=== PATIENT | female | born 1990 | race African-American/Black ===

== ENCOUNTER 2020-05-09 10:15 | Inpatient (IN) | payer MEDICAID, OTHER ==
[~2020-05-09] VITALS: Ht 167.6 cm; Wt 100.0 kg
[~2020-05-09 10:15] MED LIST: HYDR-3240 PO; IBUP-1222 PO
[2020-05-14] MEDS ORDERED: NEWBORN KIT ONE (22:23)
[2020-05-14 22:25] VITALS: BP 130/71
[2020-05-14] MEDS ORDERED: OXYTOCIN 30U/ 0.9% NaCL 500ML 500 ML IV PRN (22:30)
[2020-05-14] MEDS ORDERED: FENTANYL PF 100 MCG/2ML IV PRN (22:30)
[2020-05-14] MEDS ORDERED: D5%-LACTATED RINGERS 1,000 ML IV SCH (22:30)
[2020-05-14] MEDS ORDERED: ONDANSETRON 2MG/ML, 2ML IVPush PRN (22:30)
[2020-05-14] MEDS ORDERED: TERBUTALINE 1 MG/ML, 1ML IVPush PRN (22:30)
[2020-05-14] MEDS ORDERED: OXYTOCIN 30U/ 0.9% NaCL 500ML 500 ML IV ONE (22:30)
[2020-05-14] MEDS ORDERED: FENTANYL PF 100 MCG/2ML IVPush PRN (22:30)
[2020-05-14] MEDS ORDERED: CALCIUM CARBONATE 500 MG TAB.CHEW PO PRN (22:30)
[2020-05-14] MEDS ORDERED: TERBUTALINE 1 MG/ML, 1ML SQ PRN (22:30)
[2020-05-14] MEDS: LACTATED RINGERS 1,000 ML IV SCH (22:40)
[2020-05-14] MEDS ORDERED: OXYTOCIN 30U/ 0.9% NaCL 500ML 500 ML ONE (22:44)
[2020-05-14 22:59] LABS: BASOPHILS % (AUTO) 1 % (0-1); EOSINOPHILS % (AUTO) 2 % (1-7); LYMPHOCYTES % (AUTO) 30 % (22-44); MEAN CORPUSCULAR HEMOGLOBIN 29.1 pg (27.0-34.8); MONOCYTES % (AUTO) 10 % (2-9); NEUTROPHILS % (AUTO) 58 % (42-75); PLATELET COUNT 317 x10^3/uL (130-400); RED BLOOD COUNT 4.33 x10^6/uL (3.82-5.3)
[2020-05-14 23:09] LABS: MD NO
[2020-05-14] MEDS ORDERED: PLEASE ENTER HEIGHT AND WEIGHT MC SCH (23:30)
[2020-05-15] MEDS: LACTATED RINGERS 1,000 ML IV SCH (05:28)
[2020-05-15] MEDS ORDERED: FENTANYL PF 100 MCG/2ML ONE (08:38)
[2020-05-15] MEDS ORDERED: LACTATED RINGERS 1,000 ML IV SCH (09:30)
[2020-05-15] MEDS ORDERED: NALOXONE 0.4 MG/ML, 1ML IVPush PRN (09:30)
[2020-05-15] MEDS ORDERED: FENTANYL/BUPIV./NS/PF 250 ML EPIDCONT SCH (09:30)
[2020-05-15] MEDS ORDERED: LACTATED RINGERS 1,000 ML IVBOLUS PRN (09:30)
[2020-05-15] MEDS ORDERED: EPHEDRINE 50 MG/ML, 1ML IVPush PRN (09:30)
[2020-05-15] MEDS ORDERED: FENTANYL/BUPIV./NS/PF 250 ML EPIDCONT ONE (09:40)
[2020-05-15] MEDS ORDERED: BUPIVACAINE 0.25% ONE (09:40)
[2020-05-15] MEDS ORDERED: LIDOCAINE 1%, 20ML ONE (10:55)
[2020-05-15] MEDS ORDERED: MISOPROSTOL 200 MCG TABLET ONE (10:55)
[2020-05-15] MEDS ORDERED: DOCUSATE 100 MG CAPSULE PO PRN (12:30)
[2020-05-15] MEDS ORDERED: ACETAMINOPHEN 325 MG TABLET PO PRN ×2 (12:30)
[2020-05-15] MEDS ORDERED: ONDANSETRON 2MG/ML, 2ML IV PRN (12:30)
[2020-05-15] MEDS ORDERED: RHOGAM FROM BLOOD BANK 1 NOTE EA IM/IV ONE (12:30)
[2020-05-15] MEDS ORDERED: DIPH,PERTUSS(ACELL),TET VAC/PF NC IM-VACC PRN (12:30)
[2020-05-15] MEDS ORDERED: MISOPROSTOL 200 MCG TABLET PR PRN (12:30)
[2020-05-15] MEDS ORDERED: CALCIUM CARBONATE 500 MG TAB.CHEW PO PRN (12:30)
[2020-05-15] MEDS: OXYTOCIN 30U/ 0.9% NaCL 500ML 500 ML IV SCH ×2 (12:30→22:30)
[2020-05-15] MEDS ORDERED: MAGNESIUM HYDROXIDE 8%, 30ML UDC PO PRN (12:30)
[2020-05-15] MEDS ORDERED: SIMETHICONE 80 MG CHEW TAB PO PRN (12:30)
[2020-05-15] MEDS ORDERED: OXYcodone/APAP 5/325MG TABLET PO PRN ×2 (12:30)
[2020-05-15] MEDS ORDERED: ONDANSETRON 2MG/ML, 2ML ONE (14:02)
[2020-05-15 15:20] VITALS: BP 94/62
[2020-05-15 19:45] VITALS: BP 119/40
[2020-05-15 20:57] LABS: BASOPHILS % (AUTO) 1 % (0-1); EOSINOPHILS % (AUTO) 1 % (1-7); LYMPHOCYTES % (AUTO) 22 % (22-44); MEAN CORPUSCULAR HGB CONC 33.1 g/dL (32.4-35.8); MEAN PLATELET VOLUME 7.1 fL (7.4-10.4); MONOCYTES % (AUTO) 10 % (2-9); NEUTROPHILS % (AUTO) 67 % (42-75); PLATELET COUNT 294 x10^3/uL (130-400); RED BLOOD COUNT 4.32 x10^6/uL (3.82-5.3); RED CELL DISTRIBUTION WIDTH 14.1 % (9.6-15.2)
[2020-05-15 21:10] LABS: MD NO
[2020-05-15] MEDS: IBUPROFEN 600 MG TABLET PO PRN (23:42)
[2020-05-15 23:45] VITALS: BP 122/63
[2020-05-16 04:19] VITALS: BP 105/70
[2020-05-16 07:46] VITALS: BP 115/62
[2020-05-16] MEDS ORDERED: PRENATAL VIT/IRON/FA 1 EACH TABLET PO SCH (09:00)
[2020-05-16] MEDS: IBUPROFEN 600 MG TABLET PO PRN (13:01)
== END 2020-05-16 13:15 | disposition home or self-care (01) | DRG 806 ==
LOC: LDIP 05-14 22:03 → 2NW 05-15 15:15
PROVIDERS: ADMIT Obstetrics & Gynecology; ATTEND Obstetrics & Gynecology
PROC: 10E0XZZ Delivery of Products of Conception, External Approach (ICD-10-PCS; principal; 2020-05-15)
PROC: 10907ZC Drainage of Amniotic Fluid, Therapeutic from Products of Conception, Via Natural or Artificial Opening (ICD-10-PCS; 2020-05-15)
PROC: 3E0R3BZ Introduction of Anesthetic Agent into Spinal Canal, Percutaneous Approach (ICD-10-PCS; 2020-05-15)
PROC: 00HU33Z Insertion of Infusion Device into Spinal Canal, Percutaneous Approach (ICD-10-PCS; 2020-05-15)
PROC: 10H07YZ Insertion of Other Device into Products of Conception, Via Natural or Artificial Opening (ICD-10-PCS; 2020-05-15)
PROC: 0HQ9XZZ Repair Perineum Skin, External Approach (ICD-10-PCS; 2020-05-15)
DX: O48.0 Post-term pregnancy (principal); O98.42 Viral hepatitis complicating childbirth; Z37.0 Single live birth; B19.10 Unspecified viral hepatitis B without hepatic coma; Z3A.40 40 weeks gestation of pregnancy; O70.0 First degree perineal laceration during delivery
CPT/HCPCS: 36415; 82803; 85025; 86592; 86850; 86900; 87635; G0378; J2405; J3010; J2590; J7120